=== PATIENT | male | born 1985 | race Two or more races ===

== ENCOUNTER 2017-04-18 02:34 | Emergency (ER) | payer MEDICAID ==
[~2017-04-18] VITALS: Ht 172.7 cm; Wt 104.3 kg
[2017-04-18 02:55] VITALS: BP 138/88
== END 2017-04-18 04:52 | disposition left against medical advice (07) ==
LOC: ER 02:34
DX: R07.81 Pleurodynia (principal); Z53.21 Procedure and treatment not carried out due to patient leaving prior to being seen by health care provider